=== PATIENT | female | born 1995 | race Caucasian/White ===

== ENCOUNTER 2020-11-23 06:05 | Inpatient (IN) | payer MEDICARE ==
[~2020-11-23] VITALS: Ht 162.6 cm; Wt 138.4 kg
[~2020-11-23 06:05] MED LIST: AMOX1TAB12 PO; AZIT250T89 PO; AZIT500T PO; AZIT500T10 PO; CEFD300C37 PO; LACO50TA PO; LAMO200T49 PO; MEDR150V SQ; ZONI100C36 PO
--- NOTE | 2020-11-23 06:20 | NUR ---
PT ARRIVED VIA AMBULANCE FOR SEIZURES, EMS STATED THAT PT HAD A TOTAL OF FIVE SEIZURES SINCE LAST NIGHT, PT HAS A GCS OF 8 CURRENTLY, MOTHER AT BEDSIDE AND MOTHER STATED THAT HER NORMAL SCORE IS 11, PT DOES HAVE HX OF SEIZURES AND IS DEVELOPMENTALLY DELAYED, PT RECIEVED 2.5MG IV VERSED AND 2.5MG IM VERSED EN ROUTE, PT CURRENTLY NOT SEIZING, PT IS VERY JITTERY/TREMULOUS, MOTHER STATES THAT THIS IS NORMAL FOR HER WHEN SHE IS COMING OUT OF A SEIZURE, SIDE RAILS UP AND BED IN LOW POSITION, SEIZURE PADS PLACED ON SIDE RAILS
[2020-11-23] MEDS ORDERED: LORazepam 2 MG/ML, 1ML ONE (06:28)
[2020-11-23] MEDS ORDERED: LORazepam 2 MG/ML, 1ML IVPush ONE (06:30)
[2020-11-23] MEDS ORDERED: SODIUM CHLORIDE FLUSH 10ML SYR IVF ONE (06:30)
--- NOTE | 2020-11-23 06:32 | NUR ---
PT HAD ANOTHER SEIZURE, SEIZURE WAS WITNESSED BY STAFF LASTING ABOUT A MINUTE, THIS RN ADMINISTERED 1MG IV ATIVAN, PT VOMITTED X1, SUCTION WAS APPLIED, PT PUT ON A NONREBREATHER TO PROVIDE SUPLIMENTAL OXYGEN
--- NOTE | 2020-11-23 06:38 | NUR ---
URINE COLLECTED VIA STRAIGHT CATH
[2020-11-23] MEDS ORDERED: VALPROATE SODIUM 500 MG in DEXTROSE 5% 100 ML IV ONE (06:51)
[2020-11-23 06:53] LABS: MICROSCOPIC INDICATED
--- NOTE | 2020-11-23 07:10 | NUR ---
RECEIVED REPORT FROM SHERMAN HECTOR TO ASSUME CARE.
[2020-11-23 07:22] LABS: BASOPHILS % (AUTO) 0 % (0-1); EOSINOPHILS % (AUTO) 0 % (1-7); LYMPHOCYTES % (AUTO) 5 % (22-44); MEAN CORPUSCULAR HEMOGLOBIN 29.7 pg (27.0-34.8); MEAN CORPUSCULAR HGB CONC 33.3 g/dL (32.4-35.8); MEAN PLATELET VOLUME 6.3 fL (7.4-10.4); MONOCYTES % (AUTO) 2 % (2-9); NEUTROPHILS % (AUTO) 93 % (42-75); PLATELET COUNT 348 x10^3/uL (130-400); RED BLOOD COUNT 4.68 x10^6/uL (3.82-5.3); RED CELL DISTRIBUTION WIDTH 13.1 % (9.6-15.2)
--- NOTE | 2020-11-23 07:24 | NUR ---
UPON INITIAL VISUAL OF PT NOTED RAPID SHALLOW BREATHING. SWITCHED PT FROM NON REBREATHER MASK 8L TO NASAL CANULA 6L. PT SATURATION AT 100%. RESPRIRATION 26. PT IS SLIGHTLY RESTLESS.
[2020-11-23 07:33] LABS: ALBUMIN 3.4 g/dL (3.4-5.0); ANION GAP 11 mmol/L (5-15); CALCIUM 8.9 mg/dL (8.5-10.1); CHLORIDE 114 mmol/L (98-107)
[2020-11-23 07:36] LABS: ALANINE AMINOTRANSFERASE 22 U/L (12-78); ALKALINE PHOSPHATASE 73 U/L (45-117); BILIRUBIN,TOTAL 0.2 mg/dL (0.2-1.0); TOTAL PROTEIN 7.8 g/dL (6.4-8.2)
--- NOTE | 2020-11-23 07:45 | NUR ---
PT INTERACTIING WITH MOTHER WELL, EYES OPEN. PT BREATHING RATE HAS COME DOWN. OXYGEN PUT AT 4L NASAL CANULA.
--- NOTE | 2020-11-23 08:27 | NUR ---
REPORT GIVEN TO TREY RN ROOM [id number]
[2020-11-23 09:08] VITALS: BP 122/86
[2020-11-23] MEDS ORDERED: SENNA/DOCUSATE TABLET PO PRN (09:30)
[2020-11-23] MEDS ORDERED: ACETAMINOPHEN 650 MG/20.3 ML UDC PO PRN (09:30)
[2020-11-23] MEDS ORDERED: ONDANSETRON 2MG/ML, 2ML IVPush PRN (09:30)
[2020-11-23] MEDS: ENOXAPARIN 30 MG/0.3 ML SQ SCH ×2 (09:30→20:48)
[2020-11-23] MEDS ORDERED: POLYETHYLENE GLYCOL 17 GM PACKET PO PRN (09:30)
[2020-11-23] MEDS ORDERED: ZONI100C29 PO (10:04)
[2020-11-23] MEDS ORDERED: LAMO25TB7 PO (10:04)
[2020-11-23] MEDS ORDERED: LAMOTRIGINE 100 MG TABLET PO SCH (12:00)
[2020-11-23] MEDS: ZONISAMIDE 50 MG CAPSULE PO SCH ×2 (13:17→20:29)
[2020-11-23 13:36] VITALS: BP 125/71
[2020-11-23 16:59] VITALS: BP 118/67
[2020-11-23] MEDS: LAMOTRIGINE 100 MG TABLET PO SCH ×2 (18:16→20:48)
[2020-11-23 19:04] VITALS: BP 117/72
[2020-11-23 20:58] VITALS: BP 103/50
[2020-11-23] MEDS ORDERED: PLEASE ENTER ALLERGIES MC SCH (22:00)
[2020-11-23] MEDS ORDERED: LORazepam 2 MG/ML, 1ML IVPush PRN (22:00)
[2020-11-24 00:14] VITALS: BP 110/67
[2020-11-24 03:54] VITALS: BP 109/67
[2020-11-24 06:26] LABS: ALANINE AMINOTRANSFERASE 23 U/L (12-78); ALBUMIN 3.3 g/dL (3.4-5.0); ANION GAP 10 mmol/L (5-15); CALCIUM 8.7 mg/dL (8.5-10.1); CHLORIDE 113 mmol/L (98-107); CREATININE 0.81 mg/dL (0.55-1.02)
[2020-11-24 06:28] LABS: ALKALINE PHOSPHATASE 74 U/L (45-117); BILIRUBIN,TOTAL 0.9 mg/dL (0.2-1.0); TOTAL PROTEIN 7.9 g/dL (6.4-8.2)
[2020-11-24 06:58] VITALS: BP 115/75
[2020-11-24] MEDS: ENOXAPARIN 30 MG/0.3 ML SQ SCH (08:03)
[2020-11-24] MEDS: ZONISAMIDE 50 MG CAPSULE PO SCH (08:03)
[2020-11-24 08:38] LABS: BASOPHILS % (AUTO) 1 % (0-1); EOSINOPHILS % (AUTO) 2 % (1-7); LYMPHOCYTES % (AUTO) 24 % (22-44); MEAN CORPUSCULAR HEMOGLOBIN 29.9 pg (27.0-34.8); MEAN CORPUSCULAR HGB CONC 33.7 g/dL (32.4-35.8); MEAN PLATELET VOLUME 6.6 fL (7.4-10.4); MONOCYTES % (AUTO) 7 % (2-9); NEUTROPHILS % (AUTO) 67 % (42-75); PLATELET COUNT 384 x10^3/uL (130-400); RED BLOOD COUNT 4.89 x10^6/uL (3.82-5.3); RED CELL DISTRIBUTION WIDTH 13.2 % (9.6-15.2)
[2020-11-24] MEDS ORDERED: LAMOTRIGINE 100 MG TABLET PO SCH (09:00)
[2020-11-24 11:21] VITALS: BP 107/74
[2020-11-24 12:49] VITALS: BP 139/52
[2020-11-24] MEDS ORDERED: ZONI100C29 PO (14:46)
[2020-11-24] MEDS ORDERED: LAMO100T8 PO (14:46)
== END 2020-11-24 16:15 | disposition home or self-care (01) | DRG 101 ==
LOC: ED 07:25 → EDIP 08:41 → 4WST 08:44
PROVIDERS: ADMIT Internal Medicine; ATTEND Internal Medicine
PROC: 0T9B70Z Drainage of Bladder with Drainage Device, Via Natural or Artificial Opening (ICD-10-PCS; principal; 2020-11-23)
DX: G40.901 Epilepsy, unspecified, not intractable, with status epilepticus (principal); E87.2 Acidosis; Z68.43 Body mass index [BMI] 50.0-59.9, adult; D72.829 Elevated white blood cell count, unspecified; Z80.0 Family history of malignant neoplasm of digestive organs; E66.9 Obesity, unspecified; Z88.8 Allergy status to other drugs, medicaments and biological substances
CPT/HCPCS: 36415; 71045; 76700; 80053; 81001; 82550; 82962; 83605; 85025; 87040; 93005; 96374; G0378; J1650; J2060